=== PATIENT | male | born 1995 | race Caucasian/White ===

== ENCOUNTER 2020-07-18 21:53 | Emergency (ER) | payer SELFPAY ==
[2020-07-18 22:08] VITALS: O2SAT 98
[2020-07-18] MEDS ORDERED: Floxin Otic 5 ML OT ONE (22:21)
[2020-07-18] MEDS ORDERED: Ocuflox OPHTHALMIC 5 ML OP ONE (22:26)
--- NOTE | 2020-07-18 22:27 | ERPHSYRPT ---
- History of Present Illness Time Seen by Provider: 07/18/20 21:59 Source: patient Exam Limitations: no limitations Patient Subjective Stated Complaint: pt states, pain to lt ear since , muffled hearing sounds, and consistent pain x4 days Triage Nursing Assessment: pt c/o lt ear pain x4 days and muffled hearing sounds, redness noted to ear canal. No drainage noted. Physician History: 24 years old presented in the ER with chief complaint of left earache for 3-4 days gradual onset progressively worsening, dull to sharp moderate intensity, aggravated with palpation/pulling external ear/movements of jaw and better with taking [id number] pain medication. Denies any discharge. Reports it seems like his external ear is swollen and has some muffled sound. No fever chills difficulty swallowing or sore throat. Timing/Duration: gradual onset, days (3) Severity: moderate ENT Location: ear (L) Prearrival Treatment: over the counter meds Associated Symptoms: ear pain (L), change in hearing, No facial pain/swelling, No headache Allergies/Adverse Reactions: No Known Drug Allergies Allergy (Unverified 07/18/20 22:16) Home Medications: No Reportable Medications [No Reported Medications] 07/18/20 [History] Hx Tetanus, Diphtheria Vaccination/Date Given: Yes Hx Influenza Vaccination/Date Given: Yes Hx Pneumococcal Vaccination/Date Given: No Immunizations Up to Date: Yes Travel Risk - International Travel Have you traveled outside of the country in past 3 weeks: No - Coronavirus Screening Are you exhibiting any of the following symptoms?: No Close contact with a COVID-19 positive Pt in past 14-21 Days: No - Vaccine Status Have you recieved a Covid-19 vaccination: No - Review of Systems Constitutional: No Symptoms Eyes: No Symptoms Ears, Nose, & Throat: Ear Pain, No Ear Discharge Respiratory: No Symptoms Cardiac: No Symptoms Musculoskeletal: No Symptoms Skin: No Symptoms Psychological: No Symptoms Endocrine: No Symptoms - Past Medical History Pertinent Past Medical History: Yes Neurological History: No Pertinent History ENT History: No Pertinent History Cardiac History: No Pertinent History Respiratory History: No Pertinent History Endocrine Medical History: No Pertinent History Musculoskeletal History: No Pertinent History GI Medical History: No Pertinent History History: No Pertinent History Psycho-Social History: Depression Male Reproductive Disorders: No Pertinent History - Past Surgical History Past Surgical History: Yes Neuro Surgical History: No Pertinent History Cardiac: No Pertinent History Respiratory: No Pertinent History Gastrointestinal: Other Genitourinary: No Pertinent History Musculoskeletal: No Pertinent History Male Surgical History: No Pertinent History Other Surgical History: liver biopsy - Social History Smoking Status: Never smoker Exposure to second hand smoke: Yes Drug Use: none Patient Lives Alone: No - Nursing Vital Signs Nursing Vital Signs: Initial Vital Signs Temperature 98.5 F 07/18/20 22:07 Pulse Rate 108 H 07/18/20 22:07 Respiratory Rate 18 07/18/20 22:07 Blood Pressure 180/125 07/18/20 22:07 O2 Sat by Pulse Oximetry 98 07/18/20 22:07 Pain Scale Pain Intensity 4 - Physical Exam General Appearance: no apparent distress, alert Eye Exam: bilateral eye: normal inspection, PERRL, EOMI Ear Exam: right ear: canal normal, TM normal, left ear: erythema (Diffuse erythema of canal with narrowing. Painful movements of pinna.), bilateral ear: auricle normal Nasal Exam: normal inspection Throat Exam: normal, pharynx normal Neck Exam: normal inspection, non-tender, supple, full range of motion Cardiovascular/Respiratory Exam: normal breath sounds, regular rate/rhythm Neurologic Exam: alert, oriented x 3, cooperative, client account assistant II-XII nml as tested Skin Exam: normal color SpO2 Interpretation: normal SpO2: 98 O2 Delivery: Room Air - Progress Progress Note: 07/18/20 22:25 Has otitis externa. Later on patient does admit bathing and dipping his head in the water. He is advised not to do that. Started on ofloxacin topical. Recommended outpatient follow-up. Counseled pt/family regarding: diagnosis, need for follow-up - Departure Departure Disposition: Home Clinical Impression: Otitis externa Qualifiers: Otitis externa type: diffuse Chronicity: acute Laterality: left Qualified Code(s): H60.312 - Diffuse otitis externa, left ear Condition: Stable Critical Care Time: No Referrals: CAS JUAREZ MD [ACTIVE STAFF] - Follow Up with PCP/3 days Instructions: Outer Ear Infection (DC) Additional Instructions: Take Tylenol/ibuprofen as needed. Continue with topical antibiotics 10 drops left ear daily for 7 days. Follow-up with primary care physician for reevaluation. Return to ER for worsening pain swelling, difficulty hearing, ear discharge/fever chills etc.
[2020-07-18 22:39] VITALS: BP 157/112; PULSE 95
== END 2020-07-18 22:45 | disposition home or self-care (01) ==
LOC: ED 21:53
DX: H60.92 Unspecified otitis externa, left ear (principal)
CPT/HCPCS: 99283; A9270-GY

== ENCOUNTER 2023-10-03 19:37 | Observation (INO) | payer BC ==
--- NOTE | 2023-10-03 20:02 | ERPHSYRPT ---
- History of Present Illness Time Seen by Provider: 10/03/23 19:58 Source: patient Exam Limitations: no limitations Physician History: Patient is a 27-year-old male presents to our emergency department for evaluation of pain swelling redness to his left hand. Patient states symptoms started at the palmar aspect of his left hand and progressively worsened over the past 24 hours. The hand is very swollen at this point. Patient unable to make a fist. He denies trauma. Patient also has pain at the medial aspect of his left elbow. Grandmother at bedside states patient had a fever yesterday. Patient is slightly diaphoretic during my exam. No chest pain or shortness of breath. No nausea vomiting. Symptoms are mild to moderate in intensity. No specific worsening or improving factors. Patient otherwise feels well. He voices no other complaints concerns at this time. Portions of this note were created with voice recognition technology. There may be grammatical, spelling, punctuation or sound alike errors Timing/Duration: today Severity: moderate Modifying Factors: Improves With: nothing Associated Symptoms: denies symptoms Allergies/Adverse Reactions: No Known Drug Allergies Allergy (Verified 10/03/23 20:02) Home Medications: Olmesartan Medoxomil 20 mg [Benicar 20 MG] 20 mg PO DAILY 10/03/23 [History] Hx Tetanus, Diphtheria Vaccination/Date Given: Yes Hx Influenza Vaccination/Date Given: Yes Hx Pneumococcal Vaccination/Date Given: No - Review of Systems Constitutional: No Symptoms, No Fever, No Chills Eyes: No Symptoms Ears, Nose, & Throat: No Symptoms Respiratory: No Symptoms, No Cough, No Dyspnea Cardiac: No Symptoms, No Chest Pain, No Edema, No Syncope Abdominal/Gastrointestinal: No Symptoms, No Abdominal Pain, No Nausea, No V omiting, No Diarrhea Genitourinary Symptoms: No Symptoms, No Dysuria Musculoskeletal: No Symptoms, No Back Pain, No Neck Pain Skin: No Symptoms, No Rash Neurological: No Symptoms, No Dizziness, No Focal Weakness, No Sensory Changes Psychological: No Symptoms Endocrine: No Symptoms Hematologic/Lymphatic: No Symptoms Immunological/Allergic: No Symptoms All Other Systems: Reviewed and Negative - Past Medical History Pertinent Past Medical History: Yes Neurological History: No Pertinent History ENT History: No Pertinent History Cardiac History: No Pertinent History Respiratory History: No Pertinent History Endocrine Medical History: No Pertinent History Musculoskeletal History: No Pertinent History GI Medical History: No Pertinent History History: No Pertinent History Psycho-Social History: Depression Male Reproductive Disorders: No Pertinent History - Past Surgical History Past Surgical History: Yes Neuro Surgical History: No Pertinent History Cardiac: No Pertinent History Respiratory: No Pertinent History Gastrointestinal: Other Genitourinary: No Pertinent History Musculoskeletal: No Pertinent History Male Surgical History: No Pertinent History Other Surgical History: liver biopsy - Social History Smoking Status: Never smoker Exposure to second hand smoke: Yes Drug Use: none Patient Lives Alone: No - Nursing Vital Signs Nursing Vital Signs: Initial Vital Signs Temperature 96.7 F 10/03/23 19:44 Pulse Rate 130 H 10/03/23 19:44 Blood Pressure 125/100 10/03/23 19:44 Pain Scale Pain Intensity 2 - Physical Exam General Appearance: no apparent distress, alert Eye Exam: PERRL/EOMI, eyes nml inspection Ears, Nose, Throat Exam: normal ENT inspection, moist mucous membranes Neck Exam: normal inspection, non-tender, supple, full range of motion Respiratory Exam: normal breath sounds, lungs clear, airway intact, No respiratory distress Cardiovascular Exam: regular rate/rhythm, normal heart sounds, normal peripheral pulses Gastrointestinal/Abdomen Exam: soft, normal bowel sounds, No tenderness, No mass Back Exam: normal inspection, normal range of motion, No CVA tenderness, No vertebral tenderness Extremity Exam: normal inspection, normal range of motion, pelvis stable, swelling (Left hand swelling. More so on the dorsal aspect. There is a lesion right at the knuckle that appears to be centrally localized to the area of cellulitis. No obvious lymphangitis however there is reactive lymphadenopathy at the medial aspect of the left elbow. The involved extremities neurovascu), other (The involved left upper extremity is neurovascular intact distally compartments are soft cap refill less than 2 seconds.) Neurologic Exam: alert, oriented x 3, cooperative, normal mood/affect, sensation nml, No motor deficits Skin Exam: normal color, warm, dry, No rash Lymphatic Exam: No adenopathy SpO2 Interpretation: normal O2 Delivery: Room Air - Course Nursing assessment & vital signs reviewed: Yes - Radiology Exams Hand X-ray Interpretation: Teleradiologist Report (No fracture or dislocation. Soft tissue swelling. No foreign body. No subcutaneous emphysema) Ordered Tests: Active Orders 24 hr Category Date Time Status Pulse Oximetry (ED) STAT Care 10/03/23 19:50 Active HAND (MINIMUM 3 VIEWS) Stat Exams 10/03/23 19:50 Taken BLOOD CULTURE Stat Lab 10/03/23 20:15 Received CBC W DIFF Stat Lab 10/03/23 20:05 Completed CMP Stat Lab 10/03/23 20:05 Completed Medication Summary Generic Name Dose Route Start Last Admin Trade Name Freq PRN Reason Stop Dose Admin Vancomycin HCl 1 gm in 200 mls @ 125 mls/hr 10/03/23 19:52 Vancomycin 1 Gram/200 Ml Bag IV 10/03/23 21:27 STAT ONE Discontinued Medications Generic Name Dose Route Start Last Admin Trade Name Freq PRN Reason Stop Dose Admin Vancomycin HCl Confirm 10/03/23 20:40 Vancomycin 1 Gram/200 Ml Bag Administered 10/03/23 20:41 Dose 1 gm in 200 mls @ ud IV .STK-MED ONE Lab/Rad Data: Laboratory Result Diagrams 10/03/23 20:05 10/03/23 20:05 Laboratory Results 10/03/23 10/03/23 Range/Units 20:05 20:05 WBC 9.9 H (4.23-9.07) x10^3/uL RBC 4.88 (4.63-6.08) x10^6/uL Hgb 15.1 (13.7-17.5) g/dL Hct 42.7 (40.1-51.0) % MCV 87.5 (79.0-92.2) fL MCH 30.9 (25.7-32.2) pg MCHC 35.4 (32.3-36.5) g/dL RDW 12.5 (11.6-14.4) % Plt Count 220 (163-337) x10^3/uL MPV 9.9 (9.4-12.4) fL Gran % 76.1 H (34.0-67.9) % Immature Gran % (Auto) 0.6 H (0.001-0.429) % Nucleat RBC Rel Count 0.0 (0.00-0.2) % Eos # (Auto) 0.04 (0.04-0.54) x10^3/uL Immature Gran # (Auto) 0.06 H (0.001-0.031) x10^3u/L Absolute Lymphs (auto) 1.35 (1.32-3.57) x10^3/uL Absolute Monos (auto) 0.85 H (0.30-0.82) x10^3/uL Absolute Nucleated RBC 0.00 (0.00-0.012) x10^3u/L Lymphocytes % 13.7 L (21.8-53.1) % Monocytes % 8.6 (5.3-12.2) % Eosinophils % 0.4 L (0.8-7.0) % Basophils % 0.6 (0.2-1.2) % Absolute Granulocytes 7.49 H (1.78-5.38) x10^3/uL Basophils # 0.06 (0.01-0.08) x10^3/uL Sodium 134 L (135-145) mmol/L Potassium 3.7 (3.5-5.1) mmol/L Chloride 102 (98-107) mmol/L Carbon Dioxide 23 (22-30) mmol/L Anion Gap 12.8 (5-15) MEQ/L BUN 14 (9-20) mg/dL Creatinine 0.86 (0.66-1.25) mg/dL Estimated GFR 121.7 ML/MIN Glucose 127 H (74-106) mg/dL Calcium 9.0 (8.4-10.2) mg/dL Total Bilirubin 1.40 H (0.2-1.3) mg/dL AST 32 (17-59) U/L ALT 45 (0-50) U/L Alkaline Phosphatase 60 (38-126) U/L Serum Total Protein 7.4 (6.3-8.2) g/dL Albumin 4.4 (3.5-5.0) g/dL - Progress Progress: improved Progress Note: 27-year-old male presents to our ED for evaluation of swelling to his left hand. Swelling has gotten worse over the 24-hour period. No trauma. Subjective fevers reported at home. Physical exam reveals left hand cellulitis with swelling. Reactive lymphadenopathy at the left elbow. No open or draining lesions. X-rays negative for fracture dislocation. No subcutaneous emphysema. Antibiotics infused. Patient received Zosyn vancomycin. Patient will require hospitalization for further evaluation and treatment. Case discussed with hospitalist Dr. Ogden who accepts admission at 8:[address] Ogden requested that we perform a CT of the left hand prior to transfer to floor. She will follow-up on results per Dr. Ogden. Plan of care discussed with patient. He agrees to admission at [facility] for further evaluation and treatment. We position patient's hand on pillow against gravity to reduce swelling. Portions of this note were created with voice recognition technology. There may be grammatical, spelling, punctuation or sound alike errors Complexity of problem addressed is moderate acute complicated. No critical care time. Complexity data reviewed and analyzed is moderate. Test ordered chest reviewed results analyzed and correlated clinically with history and physical exam. Dr. Mendez independently reviewed the x-ray of the left hand. Risk of complication and or risk of morbidity/mortality patient management is high. Patient requires hospitalization for further evaluation and treatment. Vital stable time spent to admit patient is approximately 25 minutes. Plan of care established for shared decision making. No social determinants of health present impede follow-up. Portions of this note were created with voice recognition technology. There may be grammatical, spelling, punctuation or sound alike errors 10/03/23 20:48 Counseled pt/family regarding: lab results, diagnosis, rad results - Departure Departure Disposition: Observation Clinical Impression: Cellulitis of left hand, Fever Condition: Stable Critical Care Time: No Referrals: DOCTOR,NO FAMILY [NON-STAFF PHY W/O PRIVILEGES] - Follow up/PCP as directed
[2023-10-03 20:14] LABS: Absolute Neutrophil Ct (ANC) 7.49 x10^3/uL (1.78-5.38); BASOPHIL % 0.6 % (0.2-1.2); Basophil (Absolute #) 0.06 x10^3/uL (0.01-0.08); Eosinophil % 0.4 % (0.8-7.0); Eosinophil (Absolute #) 0.04 x10^3/uL (0.04-0.54); Hematocrit 42.7 % (40.1-51.0); Hemoglobin 15.1 g/dL (13.7-17.5); IMMATURE GRAN # 0.06 x10^3u/L (0.001-0.031); IMMATURE GRAN % 0.6 % (0.001-0.429); Lymphocyte (Absolute #) 1.35 x10^3/uL (1.32-3.57); Lymphocytes % 13.7 % (21.8-53.1); Mean Cell Volume 87.5 fL (79.0-92.2); Mean Corpuscular Hemoglobin 30.9 pg (25.7-32.2); Mean Corpuscular Hgb Concent. 35.4 g/dL (32.3-36.5); Mean Platelet Volume 9.9 fL (9.4-12.4); Monocyte (Absolute #) 0.85 x10^3/uL (0.30-0.82); Monocytes % 8.6 % (5.3-12.2); Neutrophil % 76.1 % (34.0-67.9); Platelet Count 220 x10^3/uL (163-337); Red Blood Count 4.88 x10^6/uL (4.63-6.08); Red Cell Distribution Width 12.5 % (11.6-14.4); White Blood Count 9.9 x10^3/uL (4.23-9.07)
[2023-10-03 20:28] LABS: ALBUMIN 4.4 g/dL (3.5-5.0); ANION GAP 12.8 MEQ/L (5-15); BILIRUBIN,TOTAL 1.4 mg/dL (0.2-1.3); Creatinine 1 0.86 mg/dL (0.66-1.25); EST GLOMERULAR FILTRATION RATE 121.7 ML/MIN; Potassium 3.7 mmol/L (3.5-5.1); Total Protein 7.4 g/dL (6.3-8.2)
[2023-10-03] MEDS ORDERED: VANCOMYCIN 1 GRAM/200 ML BAG 1 GM/200 ML PIGGYBACK IV ONE (20:40)
[2023-10-03] MEDS: VANCOMYCIN 1 GRAM/200 ML BAG 1 GM/200 ML PIGGYBACK IV ONE (20:45)
--- NOTE | 2023-10-03 22:27 | PCM.HP ---
<JEAN DODD - Last Filed: 10/03/23 22:39> History of Present Illness - Chief Complaint History of Present Illness: is a 27 year old male. Medications & Allergies Home Medications: Home Medication List Olmesartan Medoxomil 20 mg [Benicar 20 MG] 20 mg PO DAILY 10/03/23 [History Confirmed 10/03/23] Allergies/Adverse Reactions: Allergies Allergy/AdvReac Type Severity Reaction Status Date / Time No Known Drug Allergies Allergy Verified 10/03/23 20:02 - Physical Exam Vital Signs: Vital Signs - 24 hr Temp Pulse Resp BP BP Pulse Ox 10/03/23 22:00 105 H 18 102/69 97 10/03/23 21:59 104 H 18 108/62 96 10/03/23 20:47 78 18 104/83 97 10/03/23 20:41 103 H 16 104/83 95 10/03/23 19:44 96.7 F 130 H 125/100 Results - Labs Lab/Micro Results: Lab Results-Last 24 Hours 10/03/23 10/03/23 Range/Units 20:05 20:05 WBC 9.9 H (4.23-9.07) x10^3/uL RBC 4.88 (4.63-6.08) x10^6/uL Hgb 15.1 (13.7-17.5) g/dL Hct 42.7 (40.1-51.0) % MCV 87.5 (79.0-92.2) fL MCH 30.9 (25.7-32.2) pg MCHC 35.4 (32.3-36.5) g/dL RDW 12.5 (11.6-14.4) % Plt Count 220 (163-337) x10^3/uL MPV 9.9 (9.4-12.4) fL Gran % 76.1 H (34.0-67.9) % Immature Gran % (Auto) 0.6 H (0.001-0.429) % Nucleat RBC Rel Count 0.0 (0.00-0.2) % Eos # (Auto) 0.04 (0.04-0.54) x10^3/uL Immature Gran # (Auto) 0.06 H (0.001-0.031) x10^3u/L Absolute Lymphs (auto) 1.35 (1.32-3.57) x10^3/uL Absolute Monos (auto) 0.85 H (0.30-0.82) x10^3/uL Absolute Nucleated RBC 0.00 (0.00-0.012) x10^3u/L Lymphocytes % 13.7 L (21.8-53.1) % Monocytes % 8.6 (5.3-12.2) % Eosinophils % 0.4 L (0.8-7.0) % Basophils % 0.6 (0.2-1.2) % Absolute Granulocytes 7.49 H (1.78-5.38) x10^3/uL Basophils # 0.06 (0.01-0.08) x10^3/uL Sodium 134 L (135-145) mmol/L Potassium 3.7 (3.5-5.1) mmol/L Chloride 102 (98-107) mmol/L Carbon Dioxide 23 (22-30) mmol/L Anion Gap 12.8 (5-15) MEQ/L BUN 14 (9-20) mg/dL Creatinine 0.86 (0.66-1.25) mg/dL Estimated GFR 121.7 ML/MIN Glucose 127 H (74-106) mg/dL Calcium 9.0 (8.4-10.2) mg/dL Total Bilirubin 1.40 H (0.2-1.3) mg/dL AST 32 (17-59) U/L ALT 45 (0-50) U/L Alkaline Phosphatase 60 (38-126) U/L Serum Total Protein 7.4 (6.3-8.2) g/dL Albumin 4.4 (3.5-5.0) g/dL - Radiology Impressions Radiology Exams & Impressions: Radiology Procedures Category Date Time Status HAND (MINIMUM 3 VIEWS) Stat Exams 10/03/23 19:50 Taken UPPER EXTREMITY W CONTRAST [CT] Stat Exams 10/03/23 20:49 Taken Telemedicine Encounter - Telemedicine Encounter Telemedicine Encounter: "The entirety of this encounter was performed via Telemedicine" This visit was performed using real-time audio and video connection between my location and thepatients locationwith the assistance of a surrogateat the patients location. Written or verbal consent was obtained from the patient/guardian to perform this visit using[employer] technology. Any patient questions regarding the telemedicine interaction were answered. <ROCÍO PERALTA - Last Filed: 10/04/23 00:26> History of Present Illness - Chief Complaint Chief Complaint: Hand cellulitis Date: 10/03/23 History of Present Illness: 27 years old very pleasant male with no significant past medical history came to the ER for evaluation of left hand cellulitis. As per patient he started 24 hours ago he initially felt some lesions on the dorsal aspect of his hand that spread out and got involve the whole hand. Denied any trauma, inset bite. He did complain of a lot of pain and swelling. Denied having any fever chill. No nausea vomiting no other GI urinary symptoms reported. Denied having any prior history of this type of infection before. In the ER he was afebrile his heart rate was around 137 it was sinus tachycardia. As well as blood workup consent all came out essentially negative including white cell count that was pretty normal. X-ray remained negative. Patient admitted for IV antibiotics and further evaluation Cellulitis. - Review of Systems All Other Systems: Reviewed and Negative (14 systems reviewed and marked -ve except mentioned in [place]) - Past Medical History Past Medical History: Yes Neurological History: No Pertinent History ENT History: No Pertinent History Cardiac History: No Pertinent History Respiratory History: No Pertinent History Endocrine Medical History: No Pertinent History Musculoskelatal History: No Pertinent History GI Medical History: No Pertinent History History: No Pertinent History Pyscho-Social History: Depression Male Reproductive Disorders: No Pertinent History - Past Surgical History Past Surgical History: Yes Neuro Surgical History: No Pertinent History Cardiac History: No Pertinent History Respiratory Surgery: No Pertinent History GI Surgical History: Other Genitourinary Surgical Hx: No Pertinent History Musculskeletal Surgical Hx: No Pertinent History Male Surgical History: No Pertinent History Other Surgical History: liver biopsy Significant Family History: no pertinent family hx (No family history pertaining to this admission reported.) - Social History Smoking Status: Never smoker Exposure to second hand smoke: Yes Alcohol: None Drug Use: none - Social Determinants of Health Will the patient participate in the screening: Yes Do you worry about a steady place to live?: No Do you have any problems with any of the following?: No known problems In the past 12 months,have you had to go without utilities?: No Have you or anyone in your house had to go without enough: No Transportation Issues: No Has anyone in your support network made you feel unsafe?: No - Physical Exam Vital Signs: Vital Signs - 24 hr Temp Pulse Resp BP BP Pulse Ox 10/03/23 22:00 105 H 18 102/69 97 10/03/23 21:59 104 H 18 108/62 96 10/03/23 20:47 78 18 104/83 97 10/03/23 20:41 103 H 16 104/83 95 10/03/23 19:44 96.7 F 130 H 125/100 Additional Findings: 10/03/23 22:25 HEENT Young aged, average built in no distress NECK Supple,no thyromegaly, CVS S1+S2 + 0, no murmers RESP Bilateral equal air entry without Crepts/Wheezes heard GIT Soft non tender,non distended Skin, No rah, no Bruises LEGS No Edema, Left hand swelling/Erythema noted PSYCH Normal,m ood, judgement and insight NEURO AOX3, no focal deficit Results - Labs Lab/Micro Results: Lab Results-Last 24 Hours 10/03/23 10/03/23 Range/Units 20:05 20:05 WBC 9.9 H (4.23-9.07) x10^3/uL RBC 4.88 (4.63-6.08) x10^6/uL Hgb 15.1 (13.7-17.5) g/dL Hct 42.7 (40.1-51.0) % MCV 87.5 (79.0-92.2) fL MCH 30.9 (25.7-32.2) pg MCHC 35.4 (32.3-36.5) g/dL RDW 12.5 (11.6-14.4) % Plt Count 220 (163-337) x10^3/uL MPV 9.9 (9.4-12.4) fL Gran % 76.1 H (34.0-67.9) % Immature Gran % (Auto) 0.6 H (0.001-0.429) % Nucleat RBC Rel Count 0.0 (0.00-0.2) % Eos # (Auto) 0.04 (0.04-0.54) x10^3/uL Immature Gran # (Auto) 0.06 H (0.001-0.031) x10^3u/L Absolute Lymphs (auto) 1.35 (1.32-3.57) x10^3/uL Absolute Monos (auto) 0.85 H (0.30-0.82) x10^3/uL Absolute Nucleated RBC 0.00 (0.00-0.012) x10^3u/L Lymphocytes % 13.7 L (21.8-53.1) % Monocytes % 8.6 (5.3-12.2) % Eosinophils % 0.4 L (0.8-7.0) % Basophils % 0.6 (0.2-1.2) % Absolute Granulocytes 7.49 H (1.78-5.38) x10^3/uL Basophils # 0.06 (0.01-0.08) x10^3/uL Sodium 134 L (135-145) mmol/L Potassium 3.7 (3.5-5.1) mmol/L Chloride 102 (98-107) mmol/L Carbon Dioxide 23 (22-30) mmol/L Anion Gap 12.8 (5-15) MEQ/L BUN 14 (9-20) mg/dL Creatinine 0.86 (0.66-1.25) mg/dL Estimated GFR 121.7 ML/MIN Glucose 127 H (74-106) mg/dL Calcium 9.0 (8.4-10.2) mg/dL Total Bilirubin 1.40 H (0.2-1.3) mg/dL AST 32 (17-59) U/L ALT 45 (0-50) U/L Alkaline Phosphatase 60 (38-126) U/L Serum Total Protein 7.4 (6.3-8.2) g/dL Albumin 4.4 (3.5-5.0) g/dL - Radiology Impressions Radiology Exams & Impressions: Radiology Procedures Category Date Time Status HAND (MINIMUM 3 VIEWS) Stat Exams 10/03/23 19:50 Taken UPPER EXTREMITY W CONTRAST [CT] Stat Exams 10/03/23 20:49 Taken Assessment/Plan (1) Cellulitis of left hand Current Visit: Yes Status: Acute Code(s): L03.114 - CELLULITIS OF LEFT UPPER LIMB Telemedicine Encounter - Telemedicine Encounter Telemedicine Encounter: "The entirety of this encounter was performed via Telemedicine" This visit was performed using real-time audio and video connection between my location and thepatients locationwith the assistance of a surrogateat the patients location. Written or verbal consent was obtained from the patient/guardian to perform this visit using[employer] technology. Any patient questions regarding the telemedicine interaction were answered. Left hand cellulitis Pt admitted for evaluation on left hand cellulitis that was sudden onset got worse within 24 hours Patient not septic upon admission X-ray remained unremarkable Will continue broad-spectrum antibiotics including Vanco and Zosyn Keep following up cultures Will obtain CT for further evaluation Will get an will order in the morning for possible need of debridement Hypertension Bp running towards softe rside will keep holding home meds for now Obesity BMI > 40 Needs diatry advise and exercise for weight reduction DVT PPX SCd Code status Full D/c planning, Pending clinical stability .I have reviewed pt labs, V/S and imaging in detail , all question/concerns addressed.Pt remained high risk for damage /decline to body function due to
[2023-10-03] MEDS: VANCOMYCIN 1 GRAM/200 ML BAG 1 GM/200 ML PIGGYBACK IV SCH (23:42)
[2023-10-04] MEDS ORDERED: PIPERACILLIN/TAZOBACTAM IV ONE ×2 (00:16→05:03)
[2023-10-04] MEDS ORDERED: Sodium Chloride 100ML MINI-BAG PLUS 100 ML IV ONE ×2 (00:16→05:03)
[2023-10-04] MEDS ORDERED: Tylenol #3 Tablet PO PRN (00:21)
[2023-10-04] MEDS ORDERED: TYLENOL 325 MG PO PRN (00:22)
[2023-10-04] MEDS: Sodium Chloride 0.9% 1000 ML 1,000 ML IV SCH (00:29)
[2023-10-04] MEDS: PIPERACILLIN/TAZOBACTAM 3.375 GM in Sodium Chloride 100ML MINI-BAG PLUS 100 ML IV SCH (00:29)
--- NOTE | 2023-10-04 00:31 | PCM.HP ---
History of Present Illness - Chief Complaint Chief Complaint: Hand cellulitis Date: 10/04/23 History of Present Illness: 27 years old very pleasant male with no significant past medical history came to the ER for evaluation of left hand cellulitis. As per patient he started 24 hours ago he initially felt some lesions on the dorsal aspect of his hand that spread out and got involve the whole hand. Denied any trauma, inset bite. He did complain of a lot of pain and swelling. Denied having any fever chill. No nausea vomiting no other GI urinary symptoms reported. Denied having any prior history of this type of infection before. In the ER he was afebrile his heart rate was around 137 it was sinus tachycardia. As well as blood workup consent all came out essentially negative including white cell count that was pretty normal. X-ray remained negative. Patient admitted for IV antibiotics and further evaluation Cellulitis. - Review of Systems All Other Systems: Reviewed and Negative (14 systems reviewed and marked ve except mentioned in [facility]) Medications & Allergies Home Medications: Home Medication List Olmesartan Medoxomil 20 mg [Benicar 20 MG] 20 mg PO DAILY 10/03/23 [History Confirmed 10/03/23] Allergies/Adverse Reactions: Allergies Allergy/AdvReac Type Severity Reaction Status Date / Time No Known Drug Allergies Allergy Verified 10/03/23 20:02 - Past Medical History Past Medical History: Yes Neurological History: No Pertinent History ENT History: No Pertinent History Cardiac History: Hypertension Respiratory History: No Pertinent History Endocrine Medical History: No Pertinent History Musculoskelatal History: No Pertinent History GI Medical History: No Pertinent History History: No Pertinent History Pyscho-Social History: Depression Male Reproductive Disorders: No Pertinent History - Past Surgical History Past Surgical History: Yes Neuro Surgical History: No Pertinent History Cardiac History: No Pertinent History Respiratory Surgery: No Pertinent History GI Surgical History: Other Genitourinary Surgical Hx: No Pertinent History Musculskeletal Surgical Hx: Orthopedic Surgery Male Surgical History: No Pertinent History Other Surgical History: liver biopsy, carpal tunnel left hand Significant Family History: no pertinent family hx - Social History Smoking Status: Never smoker Exposure to second hand smoke: Yes Alcohol: None Drug Use: none - Social Determinants of Health Will the patient participate in the screening: Yes Do you worry about a steady place to live?: No Do you have any problems with any of the following?: No known problems In the past 12 months,have you had to go without utilities?: No Have you or anyone in your house had to go without enough: No Transportation Issues: No Has anyone in your support network made you feel unsafe?: No Does the patient want assistance with any of the above?: No - Physical Exam Vital Signs: Vital Signs - 24 hr Temp Pulse Resp BP BP Pulse Ox 10/03/23 22:59 97.9 F 119 H 19 119/66 97 10/03/23 22:00 105 H 18 102/69 97 10/03/23 21:59 104 H 18 108/62 96 10/03/23 20:47 78 18 104/83 97 10/03/23 20:41 103 H 16 104/83 95 10/03/23 19:44 96.7 F 130 H 125/100 Additional Findings: 10/04/23 00:28 HEENT Young aged, Obese built in no distress NECK Supple,no thyromegaly, CVS S1+S2 + 0, no murmers RESP Bilateral equal air entry without Crepts/Wheezes heard GIT Soft non tender,non distended Skin, No rah, no Bruises LEGS No Edema, Left hand swollen/erythmatous changes seen PSYCH Normal,m ood, judgement and insight NEURO AOX3, no focal deficit Results - Labs Lab/Micro Results: Lab Results-Last 24 Hours 10/03/23 10/03/23 Range/Units 20:05 20:05 WBC 9.9 H (4.23-9.07) x10^3/uL RBC 4.88 (4.63-6.08) x10^6/uL Hgb 15.1 (13.7-17.5) g/dL Hct 42.7 (40.1-51.0) % MCV 87.5 (79.0-92.2) fL MCH 30.9 (25.7-32.2) pg MCHC 35.4 (32.3-36.5) g/dL RDW 12.5 (11.6-14.4) % Plt Count 220 (163-337) x10^3/uL MPV 9.9 (9.4-12.4) fL Gran % 76.1 H (34.0-67.9) % Immature Gran % (Auto) 0.6 H (0.001-0.429) % Nucleat RBC Rel Count 0.0 (0.00-0.2) % Eos # (Auto) 0.04 (0.04-0.54) x10^3/uL Immature Gran # (Auto) 0.06 H (0.001-0.031) x10^3u/L Absolute Lymphs (auto) 1.35 (1.32-3.57) x10^3/uL Absolute Monos (auto) 0.85 H (0.30-0.82) x10^3/uL Absolute Nucleated RBC 0.00 (0.00-0.012) x10^3u/L Lymphocytes % 13.7 L (21.8-53.1) % Monocytes % 8.6 (5.3-12.2) % Eosinophils % 0.4 L (0.8-7.0) % Basophils % 0.6 (0.2-1.2) % Absolute Granulocytes 7.49 H (1.78-5.38) x10^3/uL Basophils # 0.06 (0.01-0.08) x10^3/uL Sodium 134 L (135-145) mmol/L Potassium 3.7 (3.5-5.1) mmol/L Chloride 102 (98-107) mmol/L Carbon Dioxide 23 (22-30) mmol/L Anion Gap 12.8 (5-15) MEQ/L BUN 14 (9-20) mg/dL Creatinine 0.86 (0.66-1.25) mg/dL Estimated GFR 121.7 ML/MIN Glucose 127 H (74-106) mg/dL Calcium 9.0 (8.4-10.2) mg/dL Total Bilirubin 1.40 H (0.2-1.3) mg/dL AST 32 (17-59) U/L ALT 45 (0-50) U/L Alkaline Phosphatase 60 (38-126) U/L Serum Total Protein 7.4 (6.3-8.2) g/dL Albumin 4.4 (3.5-5.0) g/dL - Radiology Impressions Radiology Exams & Impressions: Radiology Procedures Category Date Time Status HAND (MINIMUM 3 VIEWS) Stat Exams 10/03/23 19:50 Taken UPPER EXTREMITY W CONTRAST [CT] Stat Exams 10/03/23 20:49 Taken Assessment/Plan (1) Cellulitis of left hand Current Visit: Yes Status: Acute Code(s): L03.114 - CELLULITIS OF LEFT UPPER LIMB (2) Hypertension Current Visit: Yes Status: Acute Code(s): I10 - ESSENTIAL (PRIMARY) HYPERTENSION Telemedicine Encounter - Telemedicine Encounter Telemedicine Encounter: The entirety of this encounter was performed via Telemedicine This visit was performed using real-time audio and video connection between my location and thepatients locationwith the assistance of a surrogateat the patients location. Written or verbal consent was obtained from the patient/guardian to perform this visit usingLorena Gaxiola technology. Any patient questions regarding the telemedicine interaction were answered. Left hand cellulitis Pt admitted for evaluation on left hand cellulitis that was sudden onset got worse within 24 hours Patient not septic upon admission X-ray remained unremarkable Will continue broad-spectrum antibiotics including Vanco and Zosyn Keep following up cultures Will obtain CT for further evaluation Will get Ortho involved in the morning for possible need of debridement Hypertension Bp running towards softe rside will keep holding home meds for now Obesity BMI > 40 Needs diatry advise and exercise for weight reduction DVT PPX SCd Code status Full D/c planning, Pending clinical stability .I have reviewed pt labs, V/S and imaging in detail , all question/concerns addressed.Pt remained high risk for damage /decline to body function due to
--- NOTE | 2023-10-04 04:38 | PCM.NOTE ---
Date and Time: 10/04/23 0433 Subjective Assessment: MR Ornelas is a 27 year old male with a PMHX of HTN admitted 10/03/23 with left hand cellulitis after experiencing a some lesions on the dorsal aspect of his hand that spread out and got involve the whole hand with an onset of one day ago. Denied any trauma, inset bite. He did complain of a lot of pain and swelling. Denied having any fever chill. CBC and chemistries were unremarkable. Current treatment with clindamycin. Antimicrobial history Vanc/zosyn 10/03/23- 10/04/23. Ortho consulted - no need to drain- continue antibiotics. 10/04/23: Met with patient bedside. Endorses improvement of left hand pain and swelling. Discussed CT results showing soft tissue swelling - no abscess noted. Labs unremarkable. Patient reports no memory of any trauma or bite. No outpatient treatment. Upon exam, the left hand is swollen with erythema - no open areas, streaking or drainage. Patient able to move fingers. TTP. Denies fever,cough, sob, cp, abdominal pain, LINDO, dizziness, N/V/D. - Review of Systems Constitutional: No Symptoms Eyes: No Symptoms Ears, Nose, & Throat: No Symptoms Respiratory: No Symptoms Cardiac: No Symptoms Abdominal/Gastrointestinal: No Symptoms Genitourinary Symptoms: No Symptoms Musculoskeletal: No Symptoms Skin: Cellulitis (left hand) Neurological: No Symptoms Psychological: No Symptoms Endocrine: No Symptoms Hematologic/Lymphatic: No Symptoms Immunological/Allergic: No Symptoms Objective Exam General Appearance: no apparent distress Neurologic Exam: alert, oriented x 3, cooperative Skin Exam: other (Left hand edema/erythema) Wound Assessment: Skin/Wound Assessment Wound/Incision Assessment Start: 10/03/23 22:28 Text: Status: Active Freq: Q6H Protocol: Document 10/04/23 02:00 LB (Rec: 10/04/23 02:14 LB [id number]) Wound/Incision Assessment Left Hand Wound Assessment Shift Assessment Wound Type cellulitis Wound Stage Non Pressure Wound Drainage Amount None General Appearance Reddened Comment hand is warm, red, edematous, elevated on pillow on chest, ice pack in place Wound Photo Photo Taken No Eye Exam: PERRL Ears, Nose, Throat Exam: normal ENT inspection Neck Exam: normal inspection Respiratory Exam: normal breath sounds, lungs clear Cardiovascular Exam: regular rate/rhythm, normal heart sounds Gastrointestinal/Abdomen Exam: soft, normal bowel sounds Extremity Exam: inflammation, swelling, tenderness, other (edema/erythema/ tenderness to left hand) Back Exam: normal inspection Male Genitalia Exam: deferred Rectal Exam: deferred Objective Data Vital Signs: Vital Signs - 24 hr Temp Pulse Resp BP BP Pulse Ox 10/04/23 04:00 98.5 F 89 20 104/63 96 10/03/23 22:59 97.9 F 119 H 19 119/66 97 10/03/23 22:00 105 H 18 102/69 97 10/03/23 21:59 104 H 18 108/62 96 10/03/23 20:47 78 18 104/83 97 10/03/23 20:41 103 H 16 104/83 95 10/03/23 19:44 96.7 F 130 H 125/100 Pain Assessment - Last Documented Pain Intensity 0 Intake and Output: Intake & Output 10/01/23 10/02/23 10/03/23 10/04/23 11:59 11:59 11:59 11:59 Intake Total 563 Balance 563 Weight 129.6 kg Lab Results: Lab Results-Last 24 Hours 10/03/23 10/03/23 Range/Units 20:05 20:05 WBC 9.9 H (4.23-9.07) x10^3/uL RBC 4.88 (4.63-6.08) x10^6/uL Hgb 15.1 (13.7-17.5) g/dL Hct 42.7 (40.1-51.0) % MCV 87.5 (79.0-92.2) fL MCH 30.9 (25.7-32.2) pg MCHC 35.4 (32.3-36.5) g/dL RDW 12.5 (11.6-14.4) % Plt Count 220 (163-337) x10^3/uL MPV 9.9 (9.4-12.4) fL Gran % 76.1 H (34.0-67.9) % Immature Gran % (Auto) 0.6 H (0.001-0.429) % Nucleat RBC Rel Count 0.0 (0.00-0.2) % Eos # (Auto) 0.04 (0.04-0.54) x10^3/uL Immature Gran # (Auto) 0.06 H (0.001-0.031) x10^3u/L Absolute Lymphs (auto) 1.35 (1.32-3.57) x10^3/uL Absolute Monos (auto) 0.85 H (0.30-0.82) x10^3/uL Absolute Nucleated RBC 0.00 (0.00-0.012) x10^3u/L Lymphocytes % 13.7 L (21.8-53.1) % Monocytes % 8.6 (5.3-12.2) % Eosinophils % 0.4 L (0.8-7.0) % Basophils % 0.6 (0.2-1.2) % Absolute Granulocytes 7.49 H (1.78-5.38) x10^3/uL Basophils # 0.06 (0.01-0.08) x10^3/uL Sodium 134 L (135-145) mmol/L Potassium 3.7 (3.5-5.1) mmol/L Chloride 102 (98-107) mmol/L Carbon Dioxide 23 (22-30) mmol/L Anion Gap 12.8 (5-15) MEQ/L BUN 14 (9-20) mg/dL Creatinine 0.86 (0.66-1.25) mg/dL Estimated GFR 121.7 ML/MIN Glucose 127 H (74-106) mg/dL Calcium 9.0 (8.4-10.2) mg/dL Total Bilirubin 1.40 H (0.2-1.3) mg/dL AST 32 (17-59) U/L ALT 45 (0-50) U/L Alkaline Phosphatase 60 (38-126) U/L Serum Total Protein 7.4 (6.3-8.2) g/dL Albumin 4.4 (3.5-5.0) g/dL Radiology Exams: Radiology Procedures Category Date Time Status HAND (MINIMUM 3 VIEWS) Stat Exams 10/03/23 19:50 Taken UPPER EXTREMITY W CONTRAST [CT] Stat Exams 10/03/23 20:49 Taken Assessment/Plan (1) Cellulitis of left hand Current Visit: Yes Status: Acute Assessment & Plan: -Garfield borders -elevate left hand -Vanc/Zosyn started - Continue clindamycin -CRP/ESR -blood cultures pending -culture any open wounds -XR left hand with non-acute findings -CT with soft tissue edema - no abscess noted -Ortho consulted - no need for intervention- continue abx Code(s): L03.114 - CELLULITIS OF LEFT UPPER LIMB (2) Hypertension Current Visit: Yes Status: Acute Assessment & Plan: -BP stable -soft on admission - meds held -will continue to monitor Code(s): I10 - ESSENTIAL (PRIMARY) HYPERTENSION (3) Obesity, morbid, BMI 40.0-49.9 Current Visit: Yes Status: Acute Assessment & Plan: -Advised diet and exercise Code(s): E66.01 - MORBID (SEVERE) OBESITY DUE TO EXCESS CALORIES
[2023-10-04 05:12] LABS: Hematocrit 42.2 % (40.1-51.0); Mean Cell Volume 87.4 fL (79.0-92.2); Mean Corpuscular Hemoglobin 31.1 pg (25.7-32.2); Mean Corpuscular Hgb Concent. 35.5 g/dL (32.3-36.5); Platelet Count 215 x10^3/uL (163-337); Red Blood Count 4.83 x10^6/uL (4.63-6.08); Red Cell Distribution Width 12.7 % (11.6-14.4); White Blood Count 9.9 x10^3/uL (4.23-9.07)
[2023-10-04 05:34] LABS: ANION GAP 12.6 MEQ/L (5-15); Calcium 8.9 mg/dL (8.4-10.2); Creatinine 1 0.82 mg/dL (0.66-1.25); EST GLOMERULAR FILTRATION RATE 123.5 ML/MIN
[2023-10-04] MEDS: PHARMACY DOSING REQUIRED: VANCOMYCIN IV STA (07:39)
[2023-10-04] MEDS: VANCOMYCIN 1.5 GRAM/300 ML BAG 1.5 GM/300 ML PIGGYBACK IV SCH (07:39)
--- NOTE | 2023-10-04 08:54 | XRAY ---
Indication: Swelling. Multiple contiguous axial images obtained through the left hand/wrist using 100 cc Isovue 370 contrast as ordered. Sagittal and coronal reformatted images obtained. Comparison: None Posterior hand demonstrates diffuse soft tissue swelling/edema. No walled off fluid collection, radiopaque foreign body, or emphysema. No acute fracture, dislocation, suspicious bony lesions, or osseous destructive process. Impression: Nonspecific diffuse posterior soft tissue swelling/edema. Remaining CT left hand/wrist with contrast exam is negative.
--- NOTE | 2023-10-04 09:00 | XRAY ---
Indication: Pain, swelling, and erythema. Comparison: None 3 view left hand demonstrates diffuse soft tissue swelling. No other bony, articular, or soft tissue abnormalities.
[2023-10-04] MEDS: CLINDAMYCIN-D5W 600 MG/50 ML*** 600 MG/50 ML BAG IV SCH (13:48)
[2023-10-04] MEDS: Acidophilus TABLET PO SCH (13:48)
--- NOTE | 2023-10-04 17:55 | CONS ---
REASON FOR CONSULT: Left hand pain and swelling. HISTORY: This is an 27-year-old male who came to the emergency room last night for a chief complaint of left hand pain, redness, swelling. He states his symptoms developed 2 days ago. He denies any history of injury or known bug bite. He does note, however, that he had a similar episode 2 weeks ago that was not quite a severe, but it resolved on its own after about a week. He described spontaneous onset of left had redness, warmth, swelling, and tightness then it got better. Symptoms recurred then 2 days ago and got worse than the first time, so he came to the emergency room. He denies any health issues, other than high blood pressure. 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 PAST SURGICAL HISTORY: Significant for left elbow pinning as a child for fracture, also had left carpal tunnel release about 2 years ago. HOME MEDICATIONS: Benicar 20 mg daily. ALLERGIES: No known medical allergies. SOCIAL HISTORY: He is not and lives with his brother. REVIEW OF SYSTEMS: Negative for fever, chills, weight gain, weight loss, joint pain other than left hand. PHYSICAL EXAMINATION: GENERAL: Awake, alert, oriented male. No acute distress. HEENT: Unremarkable. NECK: Supple. CHEST: Clear. ABDOMEN: Benign. EXTREMITIES: Unremarkable, with the exception of left hand. There is diffuse swelling in the left hand extending across the dorsum of the hand and into the fingers. There is faint red coloration and increased skin temperature in this region. This extends into the palmar portion of the hand. There is no pain or redness in the wrist, and he is able to flex and extend without difficulty. He can flex and extend the fingers and thumb, but they are limited by swelling. Individual joints of the fingers are nontender. Tenderness is maximal in the thenar area, but there is no fluctuance or discernable abscess, and the tenderness is mild to moderate. X-rays left hand: Three views 10/03/2023, report pending; however, no foreign bodies are seen and soft tissue swelling is noted. CT left performed 10/03/2023, report pending. IMPRESSION: Cellulitis left hand, slightly improved on IV antibiotics compared to admission last evening. PLAN: Continue IV antibiotics and observation.
--- NOTE | 2023-10-05 05:00 | PCM.DS ---
Discharge Summary Date of Admission: 10/03/23 22:11 Date of Discharge: 10/05/23 Admitting Physician: ROCÍO PERALTA MD Consults: Consults on Case 10/03/23 22:07 Consult Ortho ROUTINE Primary Care Provider: EZIO SOMERS Allergies Allergies No Known Drug Allergies Allergy (Verified 10/03/23 20:02) Hospital Summary - Hospital Course Hospital Course: MR Ornelas is a 27 year old male with a PMHX of HTN admitted 10/03/23 with left hand cellulitis after experiencing a some lesions on the dorsal aspect of his hand that spread out and got involve the whole hand with an onset of one day ago. Denied any trauma, inset bite. He did complain of a lot of pain and swelling. Denied having any fever chill. CBC and chemistries were unremarkable. Current treatment with clindamycin. Antimicrobial history Vanc/zosyn 10/03/23- 10/04/23. Ortho consulted - no need to drain- continue antibiotics. Discharge Note New Diagnosis: cellulitits left hand New Medications: clindamycin Follow Up: PCP/Heidi (ID) Latest Assessment & Plan (1) Cellulitis of left hand Current Visit: Yes Status: Acute Assessment & Plan: -Garfield borders -elevate left hand -Vanc/Zosyn started - Continue clindamycin -CRP/ESR -blood cultures pending -culture any open wounds -XR left hand with non-acute findings -CT with soft tissue edema - no abscess noted -Ortho consulted - no need for intervention- continue abx Code(s): L03.114 - CELLULITIS OF LEFT UPPER LIMB (2) Hypertension Current Visit: Yes Status: Acute Assessment & Plan: -BP stable -soft on admission - meds held -will continue to monitor Code(s): I10 - ESSENTIAL (PRIMARY) HYPERTENSION (3) Obesity, morbid, BMI 40.0-49.9 Current Visit: Yes Status: Acute Assessment & Plan: -Advised diet and exercise I spent 35 minutes [id number] with the patient on the day of discharge performing discharge exam, discussing hospital stay and discharge instructions with patient and caregivers, preparation of discharge records, prescriptions & referral forms and addressing any questions/concerns the patient had as doc umented above. - Vitals & Intake/Output Vital Signs: Vital Signs Temperature 98.1 F 10/05/23 03:54 Pulse Rate 67 10/05/23 03:54 Respiratory Rate 16 10/05/23 03:54 Blood Pressure 83/48 10/05/23 03:54 O2 Sat by Pulse Oximetry 98 10/05/23 03:54 Intake & Output: Intake & Output 10/02/23 10/03/23 10/04/23 10/05/23 11:59 11:59 11:59 11:59 Intake Total 803 480 Output Total 300 Balance 803 180 Weight 129.6 kg - Lab Result Diagrams: 10/05/23 04:20 10/05/23 04:20 Lab Results-Last 24 Hrs: Lab Results-Last 24 Hours 10/04/23 10/04/23 Range/Units 05:10 05:10 WBC 9.9 H (4.23-9.07) x10^3/uL RBC 4.83 (4.63-6.08) x10^6/uL Hgb 15.0 (13.7-17.5) g/dL Hct 42.2 (40.1-51.0) % MCV 87.4 (79.0-92.2) fL MCH 31.1 (25.7-32.2) pg MCHC 35.5 (32.3-36.5) g/dL RDW 12.7 (11.6-14.4) % Plt Count 215 (163-337) x10^3/uL MPV 10.0 (9.4-12.4) fL Sodium 134 L (135-145) mmol/L Potassium 4.0 (3.5-5.1) mmol/L Chloride 103 (98-107) mmol/L Carbon Dioxide 23 (22-30) mmol/L Anion Gap 12.6 (5-15) MEQ/L BUN 12 (9-20) mg/dL Creatinine 0.82 (0.66-1.25) mg/dL Estimated GFR 123.5 ML/MIN Glucose 103 (74-106) mg/dL Calcium 8.9 (8.4-10.2) mg/dL - Radiology Exams Ordered Rad Exams-Entire Visit: Radiology Procedures Category Date Time Status HAND (MINIMUM 3 VIEWS) Stat Exams 10/03/23 19:50 Completed UPPER EXTREMITY W CONTRAST [CT] Stat Exams 10/03/23 20:49 Completed Discharge Exam General Appearance: no apparent distress Neurologic Exam: alert, oriented x 3, cooperative Eye Exam: PERRL Ears, Nose, Throat Exam: normal ENT inspection Neck Exam: normal inspection Respiratory Exam: normal breath sounds, lungs clear Cardiovascular Exam: regular rate/rhythm, normal heart sounds Gastrointestinal/Abdomen Exam: soft, normal bowel sounds Male Genitalia Exam: deferred Rectal Exam: deferred Back Exam: normal inspection Extremity Exam: other (Left hand edema/erythema) Wound Assessment: Skin/Wound Assessment Wound/Incision Assessment Start: 10/03/23 22:28 Text: Status: Active Freq: Q6H Protocol: Document 10/05/23 01:59 LB (Rec: 10/05/23 02:02 LB [id number]) Wound/Incision Assessment Left Hand Wound Assessment Shift Assessment Wound Type CELLULITIS Wound Stage Non Pressure Wound Drainage Amount None General Appearance Reddened Comment red/warm to touch no open areas or drainage Wound Photo Photo Taken No Final Diagnosis/Problem List - Final Discharge Diagnosis/Problem (1) Cellulitis of left hand Current Visit: Yes Status: Acute Code(s): L03.114 - CELLULITIS OF LEFT UPPER LIMB (2) Hypertension Current Visit: Yes Status: Chronic Code(s): I10 - ESSENTIAL (PRIMARY) HYPERTENSION (3) Obesity, morbid, BMI 40.0-49.9 Current Visit: Yes Status: Chronic Code(s): E66.01 - MORBID (SEVERE) OBESITY DUE TO EXCESS CALORIES - Discharge Disposition: Home, Self-Care Condition: Stable Prescriptions: New clindamycin HCL [Clindamycin HCl] 150 mg PO TID 7 Days #21 cap clindamycin HCL [Clindamycin HCl] 300 mg PO TID 7 Days #21 cap Lactobacillus Acidophilus 1 each PO DAILY 30 Days #30 cap Codeine Phosphate/APAP #3 [Tylenol #3 Tablet] 1 tab PO Q4H PRN PRN 3 Days #18 tablet MDD 6 PRN Reason: Moderate To Severe Pain Continue Olmesartan Medoxomil 20 mg [Benicar 20 MG] 20 mg PO DAILY Follow up with: EZIO SOMERS [Primary Care Provider] - 10/10/23 2:30 pm JENNIFER ACUÑA [NON-STAFF PHY W/O PRIVILEGES] - 10/11/23 3:15 pm
[2023-10-05 05:09] LABS: Absolute Neutrophil Ct (ANC) 4.64 x10^3/uL (1.78-5.38); BASOPHIL % 0.8 % (0.2-1.2); Basophil (Absolute #) 0.06 x10^3/uL (0.01-0.08); Eosinophil % 2.1 % (0.8-7.0); Eosinophil (Absolute #) 0.16 x10^3/uL (0.04-0.54); Hematocrit 40.9 % (40.1-51.0); Hemoglobin 14.2 g/dL (13.7-17.5); IMMATURE GRAN # 0.03 x10^3u/L (0.001-0.031); IMMATURE GRAN % 0.4 % (0.001-0.429); Lymphocyte (Absolute #) 2.01 x10^3/uL (1.32-3.57); Mean Cell Volume 87.6 fL (79.0-92.2); Mean Corpuscular Hemoglobin 30.4 pg (25.7-32.2); Mean Corpuscular Hgb Concent. 34.7 g/dL (32.3-36.5); Mean Platelet Volume 10.3 fL (9.4-12.4); Monocyte (Absolute #) 0.55 x10^3/uL (0.30-0.82); Monocytes % 7.4 % (5.3-12.2); Neutrophil % 62.3 % (34.0-67.9); Platelet Count 245 x10^3/uL (163-337); Red Blood Count 4.67 x10^6/uL (4.63-6.08); White Blood Count 7.5 x10^3/uL (4.23-9.07)
[2023-10-05 05:14] LABS: Erythrocyte Sedimentation Rate 12 mm/hr (0-15)
[2023-10-05 05:30] LABS: ALBUMIN 3.7 g/dL (3.5-5.0); ANION GAP 11.5 MEQ/L (5-15); BILIRUBIN,TOTAL 0.6 mg/dL (0.2-1.3); Calcium 8.6 mg/dL (8.4-10.2); Creatinine 1 0.81 mg/dL (0.66-1.25); EST GLOMERULAR FILTRATION RATE 123.9 ML/MIN; Potassium 4.1 mmol/L (3.5-5.1); Total Protein 6.6 g/dL (6.3-8.2)
[2023-10-05] MEDS ORDERED: TROUGH DRUG LEVELS IJ ONE (07:30)
--- NOTE | 2023-10-05 09:08 | PCM.NOTE ---
Date and Time: 10/05/23904 Ortho Progress HD 2 for cellulitis left hand S--feeling better, less pain, redness, swelling, better movement O--af, vss WBC wnl hand exam shows less swelling and redness. tenderness present but much imporved, no fluctuance CT--no fluid pocket A--celluliitis left hand, improving with IV abx (clinda) P--OK to d/c on oral abx, spoke with hospitalist service, will arrange for MRSA swab, refer to ID for follow up due to this being second episode Objective Data Vital Signs: Vital Signs - 24 hr Temp Pulse Resp BP Pulse Ox 10/05/23 08:00 97.6 F 80 18 104/63 98 10/05/23 03:54 98.1 F 67 16 83/48 98 10/04/23 23:43 98.1 F 92 H 16 96/51 99 10/04/23 20:00 98.1 F 92 H 16 112/56 97 10/04/23 16:00 97.6 F 96 H 18 109/57 97 10/04/23 12:00 98.5 F 90 18 106/48 95 Pain Assessment - Last Documented Pain Intensity 0 Intake and Output: Intake & Output 10/02/23 10/03/23 10/04/23 10/05/23 11:59 11:59 11:59 11:59 Intake Total 803 480 Output Total 300 Balance 803 180 Weight 129.6 kg Lab Results: Lab Results-Last 24 Hours 10/05/23 10/05/23 Range/Units 04:20 04:20 WBC 7.5 (4.23-9.07) x10^3/uL RBC 4.67 (4.63-6.08) x10^6/uL Hgb 14.2 (13.7-17.5) g/dL Hct 40.9 (40.1-51.0) % MCV 87.6 (79.0-92.2) fL MCH 30.4 (25.7-32.2) pg MCHC 34.7 (32.3-36.5) g/dL RDW 13.0 (11.6-14.4) % Plt Count 245 (163-337) x10^3/uL MPV 10.3 (9.4-12.4) fL Gran % 62.3 (34.0-67.9) % Immature Gran % (Auto) 0.4 (0.001-0.429) % Nucleat RBC Rel Count 0.0 (0.00-0.2) % Eos # (Auto) 0.16 (0.04-0.54) x10^3/uL Immature Gran # (Auto) 0.03 (0.001-0.031) x10^3u/L Absolute Lymphs (auto) 2.01 (1.32-3.57) x10^3/uL Absolute Monos (auto) 0.55 (0.30-0.82) x10^3/uL Absolute Nucleated RBC 0.00 (0.00-0.012) x10^3u/L Lymphocytes % 27.0 (21.8-53.1) % Monocytes % 7.4 (5.3-12.2) % Eosinophils % 2.1 (0.8-7.0) % Basophils % 0.8 (0.2-1.2) % Absolute Granulocytes 4.64 (1.78-5.38) x10^3/uL Basophils # 0.06 (0.01-0.08) x10^3/uL ESR 12 (0-15) mm/hr Sodium 138 (135-145) mmol/L Potassium 4.1 (3.5-5.1) mmol/L Chloride 107 (98-107) mmol/L Carbon Dioxide 24 (22-30) mmol/L Anion Gap 11.5 (5-15) MEQ/L BUN 11 (9-20) mg/dL Creatinine 0.81 (0.66-1.25) mg/dL Estimated GFR 123.9 ML/MIN Glucose 92 (74-106) mg/dL Calcium 8.6 (8.4-10.2) mg/dL Total Bilirubin 0.60 (0.2-1.3) mg/dL AST 23 (17-59) U/L ALT 33 (0-50) U/L Alkaline Phosphatase 56 (38-126) U/L Serum Total Protein 6.6 (6.3-8.2) g/dL Albumin 3.7 (3.5-5.0) g/dL Radiology Exams: Radiology Procedures Category Date Time Status HAND (MINIMUM 3 VIEWS) Stat Exams 10/03/23 19:50 Completed UPPER EXTREMITY W CONTRAST [CT] Stat Exams 10/03/23 20:49 Completed
[2023-10-05 13:19] VITALS: BP 127/68; PULSE 87; RESP 20; TEMP 98.1; O2SAT 96
== END 2023-10-05 13:31 | disposition home or self-care (01) ==
LOC: ED 19:37 → MED SURG 22:11
PROVIDERS: ADMIT Internal Medicine; ATTEND Internal Medicine
DX: L03.114 Cellulitis of left upper limb (principal); I10 Essential (primary) hypertension; R50.9 Fever, unspecified; E66.01 Morbid (severe) obesity due to excess calories
CPT/HCPCS: 36000; 36415; 73130; 73201; 80048; 80053; 85025; 85027; 85652; 86140; 87040; 94760; 96365; 96366; 99285; G0378; 99204; A9270-GY; J3370